=== PATIENT | female | born 1950 | race Caucasian/White ===

== ENCOUNTER 2017-08-21 21:29 | Observation (INO) ==
[2017-08-21] MEDS ORDERED: Ipratropium/Albuterol Neb 3 ML IH ONE (22:05)
[2017-08-21] MEDS ORDERED: 0.9 % Sodium Chloride 1,000 ML IVC ONE (22:05)
[2017-08-21] MEDS ORDERED: methylPREDNISolone 125 MG/2 ML VIAL IVP ONE (22:05)
[2017-08-21] MEDS ORDERED: Levofloxacin 750 MG/150 ML 750 MG/150 ML BAG IVPB ONE (22:05)
--- NOTE | 2017-08-21 22:45 | Emergency Department Note ---
START Narrative - START START: I examined this patient and my medical decision-making was reviewed with the Resident Physician. I agree with the documented findings, disposition and treatment plan as described except to the extent set forth below. 66-year-old female presents emergency room for cough and shortness of breath. Patient was very wheezy upon arrival with a fever. Concerns that she might be developing pneumonia. Chest x-ray did not show any acute infection. She is given pulmonary treatments as well as steroids and Levaquin. We will see how the patient responds. Possible admission. He has no history of any lung disease. No history of COPD. No history of CHF.
--- NOTE | 2017-08-21 22:59 | Emergency Department Note ---
Disposition Clinical Impression: Community acquired pneumonia Qualifiers: Laterality: unspecified laterality Qualified Code(s): J18.9 - Pneumonia, unspecified organism Disposition: Admitted As Inpatient Condition: Fair Referrals: Ivelisse Carlos MD [Primary Care Provider] - Forms: ED Satisfaction Letter Time of Disposition: 23:22 SOB [facility] - General Chief Complaint: ED Shortness of Breath/Dyspnea Stated Complaint: JUNITO Time Seen by Provider: 08/21/17 21:33 Source: patient Mode of arrival: ambulatory Limitations: no limitations Nursing Notes Reviewed: Yes Vital Signs Reviewed: Yes - History of Present Illness 66-year-old female presented to the emergency department complaining of shortness of breath. Patient says she does have seasonal allergies otherwise has no other medical conditions other than diabetes. She has a have COPD she does have a Pro Air for the seasonal allergies but said this is different. Patient says she has had a fever has felt warm but has not been nauseous or vomiting. She is not checks fevers L has not taken anything for fever. She does have any history of heart problems. She has never had a blood clots. She has no hemoptysis. No long car rides. Patient otherwise has no complaints including headaches, blurry vision, neck pain, back pain, chest pain, abdominal pain, pain with urination, changes in bowel bowel movements, pain or tingling down the arms or legs or generalized weakness. - Related Data Allergies Allergy/AdvReac Type Severity Reaction Status Date / Time No Known Allergies Allergy Verified 08/21/17 21:29 Review of Systems: 10 point review of systems done and negative unless otherwise stated in the history of present illness. All systems ED: reviewed and negative except as stated. Review of Systems: As Per HPI Past Medical History - Past Medical History Attestation: Yes The following information was validated with the patient. Source: patient Medical history: Reports: diabetes, hypertension, thyroid disease Psychiatric history: Reports: no psych history [employer] history: Reports: non-contributory - Social History Smoking Status: Never smoker Smokeless Tobacco Status: No Alcohol use: Reports: none Drug use: Reports: none Physical Exam - General Limitations: no limitations General appearance: alert, in no apparent distress - Head Head exam: atraumatic, normocephalic, normal inspection - Eye Eye exam: Present: normal appearance, PERRL, EOMI - ENT ENT exam: normal exam, normal oropharynx, mucous membranes moist - Neck Neck exam: Present: normal inspection, full ROM, trachea midline - Chest Chest inspection: Present: normal inspection, symmetric chest wall rise - Respiratory Respiratory exam: Present: wheezes (With crackles bilaterally), accessory muscle use. Absent: respiratory distress, prolonged expiratory phase - Cardiovascular Cardiovascular exam: Present: regular rate, normal rhythm, normal heart sounds - Abdominal Exam Abdominal exam: Present: soft, Non-Tender, normal bowel sounds. Absent: tenderness, distention, guarding, rebound, rigidity - Extremities Exam Extremities exam: Present: normal inspection, full ROM. Absent: tenderness, pedal edema - Expanded Lower Extremity Exam Neurovascular/Tendon exam: Present: normal capillary refill. Absent: pulse deficit, motor deficit, sensory deficit, tendon deficit - Back Exam Back exam: Present: normal inspection, full ROM. Absent: tenderness, CVA tenderness (R), CVA tenderness (L) - Neurological Exam Neurological exam: Present: alert, oriented X3 - Skin Skin exam: Present: warm, dry, intact, normal color Course Course Narrative: 66-year-old female presented to the emergency department complaining of shortness of breath. Did give patient her blood albuterol treatments as well as Solu-Medrol. We will start patient on Levaquin due to this was likely be a pneumonia based on exam fever and tachycardia. We will get basic labs including CBC, BMP, d-dimer, lactic acid as well as chest x-ray. We will get EKG. She most likely will be admitted. Vital Signs Temperature 101.0 F H 08/21/17 21:29 Pulse Rate 125 08/21/17 21:29 Respiratory Rate 28 08/21/17 21:29 Blood Pressure 169/93 08/21/17 21:29 O2 Sat by Pulse Oximetry 94 08/21/17 21:29 Temperature 99.4 F 08/21/17 21:55 Pulse Rate 116 08/21/17 22:59 Respiratory Rate 20 08/21/17 22:59 Blood Pressure 119/75 08/21/17 22:59 O2 Sat by Pulse Oximetry 98 08/21/17 22:59 Oxygen Delivery Oxygen Delivery Room Air Shortness of Breath/Dyspnea - MDM Narrative Medical decision making narrative: 66-year-old female presented to the emergency prior shortness of breath she was wheezing and had crackles on exam which fevers got her bilaterally throughout the whole lungs. Did give site Medrol as well as DuoNeb treatments patient's wheezing did get better after getting those treatments. EKG had no acute findings other than tachycardia. We also gave Tylenol for her fever of 101. Chest x-ray showed no acute pneumonia but we treat her with Levaquin as this most likely is a pneumonia this is not showing up yet on chest x-ray. All labs came back normal. Urinalysis also came back normal. Spoke with the patient patient does live alone said she is scared about going home as she has no breathing treatments as she has never had any pulmonary issues in the past. Due to this I felt that admission would be best for this patient to get DuoNeb' s if needed. I spoke with the hospitalist who agreed with me and accepted the patient to their service I spoke with who agreed to admit the patient to their service. Patient is admitted in stable condition Chest X-Ray 08/21/17 22:06 IMPRESSION: No acute process. D/ / Umesh Matute MD / Umesh Matute MD Interpreting Provider: Umesh Matute MD - Medical Records Medical records reviewed: Yes I reviewed the patient's medical records. - Lab Data Lab results reviewed: Yes I reviewed the patient's lab results. Result diagrams: 08/21/17 22:06 08/21/17 22:06 Lab Results 08/21/17 08/21/17 08/21/17 Range/Units 22:03 22:05 22:06 WBC 7.8 (4.3-11.1) K/mcL RBC 4.36 (3.82-4.97) M/mcL Hgb 12.8 (11.5-15.4) g/dL Hct 39.4 (35.3-44.9) % MCV 90.4 (83.0-100.0) fL MCH 29.4 (28.0-33.3) pg MCHC 32.5 (31.6-35.5) g/dL RDW 13.5 (11.5-14.5) % Plt Count 268 (140-400) K/mcL MPV 10.0 (9.4-12.4) fL Immature Gran % 0.1 (0-4) % Seg Neutrophils % 55.4 % Lymphocytes % 29.2 % Monocytes % 8.4 % Eosinophils % 6.5 % Basophils % 0.4 % Neutrophils # 4.3 (1.6-8.9) K/mcL Lymphocytes # 2.3 (0.6-4.6) K/mcL Monocytes # 0.7 (0.0-1.3) K/mcL Eosinophils # 0.5 (0.0-0.6) K/mcL Basophils # 0.0 (0.0-0.2) K/mcL D-Dimer 403 (0-500) ng/mLFEU Sodium (136-145) mEq/L Potassium (3.5-5.1) mEq/L Chloride (98-107) mEq/L Carbon Dioxide (23-29) mEq/L BUN (8-23) mg/dL Creatinine (0.60-1.20) mg/dL Est GFR ( Amer) (> 60) Est GFR (Non-Af Amer) (> 60) BUN/Creatinine Ratio (6-26) Glucose (70-105) mg/dL Calculated Osmolality (280-300) Lactic Acid (0.5-2.2) mmol/L Calcium (8.6-10.3) mg/dL Troponin I (< 0.04) ng/mL Urine Color Yellow (Yellow) Urine Clarity Clear (Clear) Urine pH 6.0 (5.0-8.0) pH Units Ur Specific [place] 1.021 (1.010-1.025) Urine Protein Negative (Neg-Trace) mg/dL Urine Glucose (UA) Normal (Normal) mg/dL Urine Ketones Negative (Negative) mg/dL Urine Blood Negative (Negative) Urine Nitrite Negative (Negative) Urine Bilirubin Negative (Negative) Urine Urobilinogen Normal (Normal) mg/dL Ur Leukocyte Esterase Negative (Negative) Ur Culture Indicated? NO (NO) 08/21/17 08/21/17 Range/Units 22:06 22:25 WBC (4.3-11.1) K/mcL RBC (3.82-4.97) M/mcL Hgb (11.5-15.4) g/dL Hct (35.3-44.9) % MCV (83.0-100.0) fL MCH (28.0-33.3) pg MCHC (31.6-35.5) g/dL RDW (11.5-14.5) % Plt Count (140-400) K/mcL MPV (9.4-12.4) fL Immature Gran % (0-4) % Seg Neutrophils % % Lymphocytes % % Monocytes % % Eosinophils % % Basophils % % Neutrophils # (1.6-8.9) K/mcL Lymphocytes # (0.6-4.6) K/mcL Monocytes # (0.0-1.3) K/mcL Eosinophils # (0.0-0.6) K/mcL Basophils # (0.0-0.2) K/mcL D-Dimer (0-500) ng/mLFEU Sodium 138 (136-145) mEq/L Potassium 3.7 (3.5-5.1) mEq/L Chloride 102 (98-107) mEq/L Carbon Dioxide 26 (23-29) mEq/L BUN 20 (8-23) mg/dL Creatinine 0.90 (0.60-1.20) mg/dL Est GFR ( Amer) > 60 (> 60) Est GFR (Non-Af Amer) > 60 (> 60) BUN/Creatinine Ratio 22 (6-26) Glucose 181 H (70-105) mg/dL Calculated Osmolality 293 (280-300) Lactic Acid 2.3 H (0.5-2.2) mmol/L Calcium 9.4 (8.6-10.3) mg/dL Troponin I < 0.03 (< 0.04) ng/mL Urine Color (Yellow) Urine Clarity (Clear) Urine pH (5.0-8.0) pH Units Ur Specific [place] (1.010-1.025) Urine Protein (Neg-Trace) mg/dL Urine Glucose (UA) (Normal) mg/dL Urine Ketones (Negative) mg/dL Urine Blood (Negative) Urine Nitrite (Negative) Urine Bilirubin (Negative) Urine Urobilinogen (Normal) mg/dL Ur Leukocyte Esterase (Negative) Ur Culture Indicated? (NO) - Radiology Data Radiology results reviewed: Yes I reviewed the patient's radiology results. - EKG Data EKG attestation: Yes I reviewed and interpreted this EKG. EKG results narrative: EKG done at 2139 review by myself and the attending shows sinus tachycardia rate of 122, CO interval 121, QRS 93, QTC 366 with a normal axis. No acute ST changes no acute T-wave changes no other signs of ischemia. No heart strain, hypertrophy, heart block. No WPW/Brugada syndrome. No old EKG compare
[2017-08-21 23:00] LABS: Basophils % 0.4 %; Eosinophils # 0.5 K/mcL (0.0-0.6); Eosinophils % 6.5 %; Hematocrit 39.4 % (35.3-44.9); Hemoglobin 12.8 g/dL (11.5-15.4); Immature Granulocytes % 0.1 % (0-4); Lymphocytes # 2.3 K/mcL (0.6-4.6); Lymphocytes % 29.2 %; Mean Corpuscular HGB Conc 32.5 g/dL (31.6-35.5); Mean Corpuscular Hemoglobin 29.4 pg (28.0-33.3); Mean Corpuscular Volume 90.4 fL (83.0-100.0); Monocytes # 0.7 K/mcL (0.0-1.3); Monocytes % 8.4 %; Neutrophils # 4.3 K/mcL (1.6-8.9); Platelet Count 268 K/mcL (140-400); Red Blood Count 4.36 M/mcL (3.82-4.97); Red Cell Distribution Width 13.5 % (11.5-14.5); Segmented Neutrophils % 55.4 %
[2017-08-21 23:03] LABS: Bilirubin,Urine Negative (Negative); Blood,Urine Negative (Negative); Clarity,Urine Clear (Clear); Color,Urine Yellow (Yellow); Glucose,Urine (UA) Normal (Normal); Ketones,Urine Negative (Negative); Leukocyte Esterase,Urine Negative (Negative); Nitrite,Urine Negative (Negative); Protein,Urine Negative (Neg-Trace); Specific Gravity,Urine 1.021 (1.010-1.025); Urobilinogen,Urine Normal (Normal)
[2017-08-21 23:09] LABS: BUN/Creatinine Ratio 22 (6-26); Blood Urea Nitrogen 20 mg/dL (8-23); Calcium 9.4 mg/dL (8.6-10.3); Carbon Dioxide 26 mEq/L (23-29); Chloride 102 mEq/L (98-107); Glucose 181 mg/dL (70-105); Osmolality,Calculated 293 (280-300); Potassium 3.7 mEq/L (3.5-5.1); Sodium 138 mEq/L (136-145); eGFR For African Americans > 60 (> 60); eGFR For Non-African Americans > 60 (> 60)
[2017-08-21 23:10] LABS: Troponin I < 0.03 ng/mL (< 0.04)
[2017-08-21] MEDS ORDERED: Naloxone 0.4 MG/ML INJ IVP PRN (23:20)
[2017-08-21] MEDS ORDERED: D5% in Water 1,000 ML IVC PRN (23:47)
[2017-08-21] MEDS ORDERED: *HR* Dextrose 50 % in Water (Syg) 50 ML SYRINGE IVP PRN (23:47)
[2017-08-21] MEDS ORDERED: Dextrose Gel 15 GM/37.5 ML TUBE PO PRN ×2 (23:47)
[2017-08-21] MEDS: Ipratropium/Albuterol Neb 3 ML IH SCH (23:47)
--- NOTE | 2017-08-22 00:09 | Internal Med History&Physical ---
Date of Encounter: 08/21/17 Time of Encounter: 23:00 Internal Medicine - H&P: HPI Chief complaint: Shortness of breath Admitted From: Emergency Dept Plans for Post Hospital Care: Home History of present illness: Ms. Izaguirre is a 66 year old female with known PMH of HTN,HLD, DM2, Asthma and seasonal allergies pt presented to ER with worsening shortness of breath and cough since this morning. Pt has been using her inhalers frequently however she does not have any relief. She denied any CP. Denied any sick contacts at home. Did not take flu shot this year. She does have cough with no expectoration. Here in the ER she has fever with T Max 101.0. Pt states she feels little better now with steroids and neb treatment. Past Med Surg Social Fam HX - Past Medical History Medical history: diabetes, hypertension, thyroid disease Psychiatric history: no psych history - Social History Smoking Status: Never smoker Smokeless Tobacco Status: No Alcohol use: none Drug use: none - Family History Brother Hx Family Respiratory Disorders: Yes (COPD) Mother Hx Family Cancer: Yes (Mother with lung cancer) Internal Medicine - H&P: Meds 3 Allergy/AdvReac Type Severity Reaction Status Date / Time No Known Allergies Allergy Verified 08/21/17 21:29 All Systems PM: A 10-system review of systems was performed and is negative for pertinent findings except as documented above in the HPI. - Constitutional Additional comments: All the systems are reviewed everything is benign except the systems and symptoms I mentioned in the history of present illness - Constitutional Vitals: Temp Pulse Resp BP Pulse Ox 99.4 F 116 20 119/75 98 08/21/17 21:55 08/21/17 22:59 08/21/17 22:59 08/21/17 22:59 08/21/17 22:59 General appearance: Present: A&O X 3, no acute distress, answers questions appropriately Exam: Able to finish full sentence without any pause - Head Head exam: Present: atraumatic, normal inspection - Neck Neck exam general surgery: Present: supple - Respiratory Respiratory exam: Present: decreased breath sounds, wheezes (moderate to severe) . Absent: rales, respiratory distress, rhonchi - Cardiovascular Cardiovascular exam: Present: +S1, +S2, tachycardia - GI/Abdominal GI/Abdominal exam: Present: normal bowel sounds, soft. Absent: rebound, rigid, tenderness - Extremities Exam Extremities exam: Absent: calf tenderness, pedal edema, tenderness - Back Exam Back exam: Absent: CVA tenderness (L), CVA tenderness (R) - Neurological Exam Neurological exam: Present: alert, oriented X3 - Psychiatric Psychiatric exam: Present: normal affect, normal mood - Skin Skin exam: Absent: rash Internal Med - H&P Results - Labs CBC & Chem 7: 08/21/17 22:06 08/21/17 22:06 Labs: Short CBC 08/21/17 Range/Units 22:06 WBC 7.8 (4.3-11.1) K/mcL Hgb 12.8 (11.5-15.4) g/dL Hct 39.4 (35.3-44.9) % Plt Count 268 (140-400) K/mcL Neutrophils # 4.3 (1.6-8.9) K/mcL BMP 08/21/17 22:06 Sodium 138 Potassium 3.7 Chloride 102 Carbon Dioxide 26 BUN 20 Creatinine 0.90 Glucose 181 H Calcium 9.4 Cardiac Enzymes 08/21/17 Range/Units 22:06 Troponin I < 0.03 (< 0.04) ng/mL Urine 08/21/17 Range/Units 22:03 Urine Color Yellow (Yellow) Urine Clarity Clear (Clear) Urine pH 6.0 (5.0-8.0) pH Units Ur Specific [place] 1.021 (1.010-1.025) Urine Protein Negative (Neg-Trace) mg/dL Urine Glucose (UA) Normal (Normal) mg/dL - Impressions ITS Impressions Chest X-Ray 08/21/17 22:06 IMPRESSION: No acute process. D/ / Umesh Matute MD / Umesh Matute MD Interpreting Provider: Umesh Matute MD - Assessment and plan (1) Acute asthma exacerbation Current Visit: Yes Status: Acute Assessment and plan: Place the pt into Med Surg for observation She does have exacerbation reactive airway disease / Asthma triggered by bronchitis started on high dose IV systemic steroids JAMIR Duoneb O2 PRN Empirical abx Levaquin Qualifiers: Asthma severity: moderate Qualified Code(s): J45.901 - Unspecified asthma with (acute) exacerbation (2) SIRS (systemic inflammatory response syndrome) Current Visit: Yes Status: Acute Assessment and plan: Pt does meet SIRS criteria with sinus tachycardia, source of inf as bronchitis and fever IV hydration empirical abx (3) Acute bronchitis Current Visit: Yes Status: Acute Assessment and plan: Reviewed CXR - did not show any acute infiltrates / no consolidation mostly viral empirical abx Levaquin will check Sputum cx, strep pna, Legionella and Resp viral panel Qualifiers: Bronchitis organism: unspecified organism Qualified Code(s): J20.9 - Acute bronchitis, unspecified (4) HTN (hypertension) Current Visit: Yes Status: Acute Assessment and plan: Fairly controlled Due to asthma exacerbation resume home meds will give hydralazine IV PRN Qualifiers: Hypertension type: essential hypertension Qualified Code(s): I10 - Essential (primary) hypertension (5) DM2 (diabetes mellitus, type 2) Current Visit: Yes Status: Acute Assessment and plan: on ISS Qualifiers: 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
[2017-08-22 00:32] LABS: Adenovirus Not Detected (Not Detect); Bordetella Pertussis Not Detected (Not Detect); Chlamydophila pneumoniae Not Detected (Not Detect); Coronavirus 229E Not Detected (Not Detect); Coronavirus HKU1 Not Detected (Not Detect); Coronavirus NL63 Not Detected (Not Detect); Coronavirus OC43 Not Detected (Not Detect); Human Metapneumovirus Not Detected (Not Detect); Human Rhinovirus/Enterovirus ***DETECTED*** (Not Detect); Influenza A Subtype 2009 H1 Not Detected (Not Detect); Influenza A Untypeable Not Detected (Not Detect); Influenza B Not Detected (Not Detect); Mycoplasma pneumoniae Not Detected (Not Detect); Parainfluenza Virus 1 Not Detected (Not Detect); Parainfluenza Virus 2 Not Detected (Not Detect); Parainfluenza Virus 3 Not Detected (Not Detect); Parainfluenza Virus 4 Not Detected (Not Detect); Respiratory Syncytial Virus Not Detected (Not Detect)
[2017-08-22] MEDS: 0.9 % Sodium Chloride 1,000 ML IVC SCH ×2 (01:28→08:30)
[2017-08-22] MEDS: Ipratropium/Albuterol Neb 3 ML IH SCH ×6 (04:18→23:52)
[2017-08-22] MEDS: MethylPREDNISolone 40 MG/ML VIAL IVP SCH ×4 (04:32→21:25)
[2017-08-22 06:23] LABS: Basophils % 0.3 %; Eosinophils % 0.3 %; Hematocrit 34.4 % (35.3-44.9); Immature Granulocytes % 0.3 % (0-4); Lymphocytes # 0.6 K/mcL (0.6-4.6); Lymphocytes % 9.8 %; Mean Corpuscular HGB Conc 32.3 g/dL (31.6-35.5); Mean Corpuscular Hemoglobin 29.1 pg (28.0-33.3); Mean Corpuscular Volume 90.1 fL (83.0-100.0); Mean Platelet Volume 9.7 fL (9.4-12.4); Monocytes # 0.1 K/mcL (0.0-1.3); Neutrophils # 5.5 K/mcL (1.6-8.9); Platelet Count 217 K/mcL (140-400); Red Blood Count 3.82 M/mcL (3.82-4.97); Red Cell Distribution Width 13.6 % (11.5-14.5); Segmented Neutrophils % 87.3 %
[2017-08-22 06:44] LABS: Hemoglobin 11.1 g/dL (11.5-15.4)
[2017-08-22 06:50] LABS: BUN/Creatinine Ratio 18 (6-26); Blood Urea Nitrogen 14 mg/dL (8-23); Calcium 8.8 mg/dL (8.6-10.3); Carbon Dioxide 20 mEq/L (23-29); Chloride 109 mEq/L (98-107); Glucose 259 mg/dL (70-105); Osmolality,Calculated 299 (280-300); Sodium 140 mEq/L (136-145); eGFR For African Americans > 60 (> 60); eGFR For Non-African Americans > 60 (> 60)
[2017-08-22] MEDS: Insulin LISPRO 300 UNITS/3 ML VIAL SQ SCH ×3 (08:31→16:41)
--- NOTE | 2017-08-22 14:38 | Internal Med Progress Note ---
Date of Encounter: 08/22/17 Time of Encounter: 14:31 - Assessment and plan (1) Acute asthma exacerbation Current Visit: Yes Status: Acute Assessment and plan: continue current care switch steroids to po from a.m Qualifiers: Asthma severity: moderate Qualified Code(s): J45.901 - Unspecified asthma with (acute) exacerbation (2) Acute bronchitis Current Visit: Yes Status: Acute Assessment and plan: No infiltartes on CXR continue current care Ff spuutm culture Legionella/Strep Ag negative Qualifiers: Bronchitis organism: unspecified organism Qualified Code(s): J20.9 - Acute bronchitis, unspecified (3) HTN (hypertension) Current Visit: Yes Status: Chronic Assessment and plan: Continue home meds Qualifiers: Hypertension type: essential hypertension Qualified Code(s): I10 - Essential (primary) hypertension (4) DM2 (diabetes mellitus, type 2) Current Visit: Yes Status: Chronic Assessment and plan: on ISS FS uncontrolled due to steroids Add levemir Qualifiers: Diabetes mellitus nursing home insulin use: without terminal make up operator use Diabetes mellitus complication status: without complication Qualified Code(s): E11.9 - Type 2 diabetes mellitus without complications (5) SIRS (systemic inflammatory response syndrome) Current Visit: Yes Status: Resolved Assessment and plan: resolved no sepsis - Time Spent With Patient Total time spent is greater than 50% in coordination of care (as documented) at patient's floor/unit and/or counseling patient: - Subjective Interval history: Seen and examined at bedside She is being managed for acute exacerbation of asthma, possibly due to bronchitis, viral infection She reports she is having some improvement in her breathing She is not making sputum yet, work up showed entero/rhino virus - Constitutional Vitals: Temp Pulse Resp BP Pulse Ox 99.0 F 99 16 104/56 95 08/22/17 10:42 08/22/17 10:42 08/22/17 11:43 08/22/17 10:42 08/22/17 11:43 General appearance: Present: A&O X 3, no acute distress, answers questions appropriately - Head Head exam: Present: atraumatic, normocephalic - Eye Eye exam: Present: PERRL, conjuntiva pink, sclera anicteric Pupils: Present: PERRL - Neck Neck exam general surgery: Present: supple, trachea midline. Absent: lymphadenopathy - Respiratory Respiratory exam: Present: CTAB. Absent: accessory muscle use, rales, rhonchi, wheezes - Cardiovascular Cardiovascular exam: Present: RRR, +S1, +S2. Absent: diastolic murmur, gallop, rubs, systolic murmur - GI/Abdominal GI/Abdominal exam: Present: normal bowel sounds, soft, no peritoneal signs. Absent: distended, tenderness - Extremities Exam Extremities exam: Present: warm, radial pulses palpable and symmetrical. Absent : calf tenderness, cyanotic, pedal edema - Neurological Exam Neurological exam: Present: alert, CN II-XII intact, oriented X3, no focal deficits. Absent: pronater drift, facial droop, speech deficit - Skin Skin exam: Present: dry, intact Internal Medicine: Result - Labs CBC & Chem 7: 08/22/17 06:05 08/22/17 06:05 Labs: Short CBC 08/22/17 Range/Units 06:05 WBC 6.4 (4.3-11.1) K/mcL Hgb 11.1 L D (11.5-15.4) g/dL Hct 34.4 L (35.3-44.9) % Plt Count 217 (140-400) K/mcL Neutrophils # 5.5 (1.6-8.9) K/mcL BMP 08/22/17 06:05 Sodium 140 Potassium 4.0 Chloride 109 H Carbon Dioxide 20 L BUN 14 Creatinine 0.79 Glucose 259 H Calcium 8.8 - ABG Interpretation ABG results: PT/INR, D-dimer D-Dimer 403 ng/mLFEU (0-500) 08/21/17 22:05 Consult Discharge Plan - Plan Referrals: Ivelisse Carlos MD [Primary Care Provider] -
[2017-08-22] MEDS ORDERED: Insulin DETEMIR 100 UNIT/ML X5UNITS SQ SCH (21:00)
[2017-08-22] MEDS ORDERED: Insulin LISPRO 300 UNITS/3 ML VIAL SQ SCH (21:00)
[2017-08-22] MEDS ORDERED: Levofloxacin 750 MG/150 ML 750 MG/150 ML BAG IVPB SCH (22:00)
[2017-08-23] MEDS ORDERED: Acetaminophen 325 MG TABLET PO PRN (00:36)
[2017-08-23] MEDS: Ipratropium/Albuterol Neb 3 ML IH SCH ×3 (04:11→11:34)
[2017-08-23 05:04] LABS: Basophils % 0.1 %; Hematocrit 32.3 % (35.3-44.9); Hemoglobin 10.4 g/dL (11.5-15.4); Immature Granulocytes % 0.7 % (0-4); Lymphocytes # 1.2 K/mcL (0.6-4.6); Lymphocytes % 8.8 %; Mean Corpuscular HGB Conc 32.2 g/dL (31.6-35.5); Mean Corpuscular Hemoglobin 28.9 pg (28.0-33.3); Mean Corpuscular Volume 89.7 fL (83.0-100.0); Mean Platelet Volume 10.1 fL (9.4-12.4); Monocytes # 0.7 K/mcL (0.0-1.3); Neutrophils # 11.2 K/mcL (1.6-8.9); Platelet Count 219 K/mcL (140-400); Segmented Neutrophils % 85.4 %
[2017-08-23 05:06] LABS: BUN/Creatinine Ratio 25 (6-26); Blood Urea Nitrogen 20 mg/dL (8-23); Calcium 8.8 mg/dL (8.6-10.3); Carbon Dioxide 23 mEq/L (23-29); Chloride 110 mEq/L (98-107); Glucose 225 mg/dL (70-105); Osmolality,Calculated 302 (280-300); Potassium 3.8 mEq/L (3.5-5.1); Sodium 141 mEq/L (136-145); eGFR For African Americans > 60 (> 60); eGFR For Non-African Americans > 60 (> 60)
[2017-08-23 07:37] VITALS: BP 99/59
[2017-08-23] MEDS: Insulin LISPRO 300 UNITS/3 ML VIAL SQ SCH (08:44)
[2017-08-23] MEDS ORDERED: predniSONE 20 MG TABLET PO SCH (09:00)
--- NOTE | 2017-08-23 11:41 | Discharge Summary ---
- NOTES TO OUTPATIENT PROVIDER Notes to Outpatient Provider: Follow up with PCP Orders not resulted at time of discharge: Pending orders 08/24/17 04:00 CBC [Complete Blood Count] [HEME] AM 0400 Chem 7 [Basic Metabolic Panel] AM 0400 Date of Encounter: 08/23/17 Time of Encounter: 11:40 - Discharge Diagnosis (1) Acute asthma exacerbation Priority: Primary Status: Acute Qualifiers: Asthma severity: mild Asthma persistence: intermittent Qualified Code(s) : J45.21 - Mild intermittent asthma with (acute) exacerbation (2) Acute bronchitis Priority: Primary Status: Acute Qualifiers: Bronchitis organism: unspecified organism Qualified Code(s): J20.9 - Acute bronchitis, unspecified (3) HTN (hypertension) Priority: Secondary Status: Chronic Qualifiers: Hypertension type: essential hypertension Qualified Code(s): I10 - Essential (primary) hypertension (4) DM2 (diabetes mellitus, type 2) Priority: Secondary Status: Chronic Qualifiers: Diabetes mellitus fpc insulin use: without exterminator helper use Diabetes mellitus complication status: without complication Qualified Code(s): E11.9 - Type 2 diabetes mellitus without complications (5) SIRS (systemic inflammatory response syndrome) Priority: Primary Status: Resolved Hospital course: Ms. Izaguirre is a 66 year old female admitted to observation for asthma exacerbation work up was negative Resp panel significant for entero/rhinovirus Patient managed conservatively with nebs, steroids, antibiotics Seen and examined this morning, ambulatory without distress, requesting to be discharged home She has no hypoxia, resp distress and her chest is CTAB Discharged in stable medical condition on prednisone taper and antibiotics Continue home albuterol MDI Discharge discussed with: patient, nurse - Time Spent with Patient Total time spent providing and/or coordinating discharge services: Less than 30 minutes - Discharge Medications Prescriptions: levoFLOXacin [Levaquin] 750 mg PO DAILY #3 tablet predniSONE [PredniSONE] 40 mg PO DAILY #20 tablet Home Medications: Albuterol Sulfate [Albuterol Inhaler] 1 - 2 puff IH Q4-6H PRN 08/22/17 [History] Glimepiride [Amaryl] 2 mg PO DAILY 08/22/17 [History] Levothyroxine Sodium 88 mcg PO DAILY 08/22/17 [History] Metformin HCl [Metformin HCl ER] 1,000 mg PO DAILY 08/22/17 [History] levoFLOXacin [Levaquin] 750 mg PO DAILY #3 tablet 08/23/17 [Rx] predniSONE [PredniSONE] 40 mg PO DAILY #20 tablet 08/23/17 [Rx] Allergies/Adverse Reactions: 3 Allergy/AdvReac Type Severity Reaction Status Date / Time No Known Allergies Allergy Verified 08/21/17 21:29 Date of admission: 08/21/17 23:31 Primary care physician: Ivelisse Carlos Discharging clinician: Lambert Milan Anticipated date of discharge: 08/23/17 - Constitutional Vitals: Temp Pulse Resp BP Pulse Ox 97.7 F 75 18 99/59 95 08/23/17 07:30 08/23/17 07:30 08/23/17 07:46 08/23/17 07:30 08/23/17 09:54 General appearance: Present: A&O X 3, no acute distress, answers questions appropriately - Head Head exam: Present: atraumatic, normocephalic - Eye Eye exam: Present: PERRL, conjuntiva pink, sclera anicteric Pupils: Present: PERRL - Neck Neck exam general surgery: Present: supple, trachea midline. Absent: lymphadenopathy - Respiratory Respiratory exam: Present: CTAB. Absent: accessory muscle use, rales, rhonchi, wheezes - Cardiovascular Cardiovascular exam: Present: RRR, +S1, +S2. Absent: diastolic murmur, gallop, rubs, systolic murmur - GI/Abdominal GI/Abdominal exam: Present: normal bowel sounds, soft, no peritoneal signs. Absent: distended, tenderness - Extremities Exam Extremities exam: Present: warm, radial pulses palpable and symmetrical. Absent : calf tenderness, cyanotic, pedal edema - Neurological Exam Neurological exam: Present: alert, CN II-XII intact, oriented X3, no focal deficits. Absent: pronater drift, facial droop, speech deficit - Skin Skin exam: Present: dry, intact - Patient Status Disposition: Home, Self-Care Condition: Good Functional capacity at discharge: independent ambulation Overall status at discharge: patient is back to baseline - Discharge Instructions Follow Up With: Ivelisse Carlos MD [Primary Care Provider] - - Diet and Activity Activity: resume usual activities as tolerated Diet: diabetic diet, low fat, low cholesterol, low salt diet
--- NOTE | 2017-08-26 00:46 | Electrocardiograph Report ---
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
== END 2017-08-23 15:14 | disposition home or self-care (01) ==
LOC: EMEROO 21:29 → 3ANU 21:29
PROVIDERS: ADMIT Internal Medicine; ATTEND Internal Medicine